=== PATIENT | male | born 1970 | race American Indian/Alaskan Native ===

== ENCOUNTER 2016-10-18 03:03 | Emergency (ER) | payer SELFPAY ==
[2016-10-18 03:13] VITALS: BP 149/92
[2016-10-18] MEDS ORDERED: MOTRIN PO ONE (04:59)
[2016-10-18] MEDS ORDERED: CLEOCIN PO ONE (05:00)
--- NOTE | 2016-10-18 05:03 | Emergency Department Report ---
ED ENT HPI - General Chief complaint: Dental/Oral Stated complaint: TOOTHACHE Time Seen by Provider: 10/18/16 04:58 Source: patient Mode of arrival: Ambulatory Limitations: No Limitations - History of Present Illness Initial comments: 46-year-old male comes in for complaint of right upper tooth and jaw swelling 2 days. Patient does admit that he has some bad teeth in his mouth. He admits to nausea vomiting fever and chills. MD complaint: tooth pain, difficulty swallowing - Related Data Previous Rx's Medication Instructions Recorded Last Taken Type Clindamycin [Clindamycin CAP] 300 mg PO Q8H #30 cap 10/18/16 Unknown Rx Ibuprofen [Motrin 800 MG tab] 800 mg PO ONCE #30 tablet 10/18/16 Unknown Rx Allergies Allergy/AdvReac Type Severity Reaction Status Date / Time seafood Allergy Intermediate Hives Uncoded 10/18/16 03:15 ED Dental HPI - General Chief complaint: Dental/Oral Stated complaint: TOOTHACHE Time Seen by Provider: 10/18/16 04:58 Source: patient Mode of arrival: Ambulatory Limitations: No Limitations - Related Data Previous Rx's Medication Instructions Recorded Last Taken Type Clindamycin [Clindamycin CAP] 300 mg PO Q8H #30 cap 10/18/16 Unknown Rx Ibuprofen [Motrin 800 MG tab] 800 mg PO ONCE #30 tablet 10/18/16 Unknown Rx Allergies Allergy/AdvReac Type Severity Reaction Status Date / Time seafood Allergy Intermediate Hives Uncoded 10/18/16 03:15 ED Review of Systems ROS: Stated complaint: TOOTHACHE Other details as noted in HPI Constitutional: chills, fever ENT: dental pain Respiratory: denies: cough, shortness of breath Cardiovascular: denies: chest pain ED Past Medical Hx - Past Medical History Previous Medical History?: No - Surgical History Past Surgical History?: No - Social History Smoking Status: Current Every Day Smoker Substance Use Type: None - Medications Home Medications: Home Medications Medication Instructions Recorded Confirmed Last Taken Type Clindamycin [Clindamycin CAP] 300 mg PO Q8H #30 cap 10/18/16 Unknown Rx Ibuprofen [Motrin 800 MG tab] 800 mg PO ONCE #30 tablet 10/18/16 Unknown Rx ED Physical Exam - General Limitations: No Limitations General appearance: alert, in no apparent distress - Head Head exam: Present: atraumatic, normocephalic - ENT ENT exam: Present: mucous membranes moist - Expanded ENT Exam Expanded Teeth exam: Present: dental caries (28), fractured tooth # (28), gingival enlargement Throat exam: Positive: normal inspection - Neck Neck exam: Present: tenderness - Respiratory Respiratory exam: Present: normal lung sounds bilaterally. Absent: respiratory distress, wheezes, rales, rhonchi - Cardiovascular Cardiovascular Exam: Present: regular rate, normal rhythm, normal heart sounds ED Course Vital Signs 10/18/16 03:05 Temperature 98.9 F Pulse Rate 73 Respiratory 20 Rate Blood Pressure 149/92 O2 Sat by Pulse 98 Oximetry ED Medical Decision Making - Medical Decision Making And evaluated by this provider fast track will order ibuprofen 800 mg 1 tablet by mouth now as well as clindamycin 600 mg 1 tablet now we'll discharge patient on ibuprofen and clindamycin for follow-up to the dentist verbalized understanding Critical care attestation.: If time is entered above; I have spent that time in minutes in the direct care of this critically ill patient, excluding procedure time. ED Disposition Clinical Impression: Abscessed tooth Disposition: DISCHARGED TO HOME OR SELFCARE Is pt being admited?: No Does the pt Need Aspirin: No Condition: Stable Instructions: Dental Abscess (ED), Toothache (ED) Additional Instructions: Complete all antibiotic as prescribed it is very important to follow-up with dentist. Prescriptions: Clindamycin [Clindamycin CAP] 300 mg PO Q8H #30 cap Ibuprofen [Motrin 800 MG tab] 800 mg PO ONCE #30 tablet Referrals: PRIMARY CARE, [Primary Care Provider] - 3-5 Days Forms: Work/School Release Form(ED)
== END 2016-10-18 05:47 | disposition home or self-care (01) ==
LOC: ED 03:03
DX: K04.7 Periapical abscess without sinus (principal); F17.200 Nicotine dependence, unspecified, uncomplicated; Z91.013 Allergy to seafood
CPT/HCPCS: 99282

== ENCOUNTER 2017-08-18 06:49 | Emergency (ER) | payer MEDICAID, OTHER ==
[2017-08-18 08:19] LABS: Basophils % (Auto) 0.6 % (0.0-1.8); Eosinophils % (Auto) 0.2 % (0.0-4.3); Hematocrit 40.5 % (35.5-45.6); Hemoglobin 13.7 gm/dl (11.8-15.2); Mean Corpuscular HGB Conc 34 % (32-34); Mean Corpuscular Hemoglobin 29 pg (28-32); Mean Corpuscular Volume 86 fl (84-94); Platelet Count 159 K/mm3 (140-440); Red Blood Count 4.73 M/mm3 (3.65-5.03); Red Cell Distribution Width 14.3 % (13.2-15.2); White Blood Count 7.3 K/mm3 (4.5-11.0)
[2017-08-18 08:41] LABS: Anion Gap 15 mmol/L; BUN/Creatinine Ratio 12; Blood Urea Nitrogen 7 mg/dL (9-20); Calcium 8.7 mg/dL (8.4-10.2); Carbon Dioxide 26 mmol/L (22-30); Chloride 102.1 mmol/L (98-107); Glucose 102 mg/dL (75-100); Potassium 4.5 mmol/L (3.6-5.0); Sodium 139 mmol/L (137-145)
--- NOTE | 2017-08-18 08:48 | XRay Report ---
LEFT HAND, 3 views: History: Pain and swelling. The bony architecture is intact. Bony alignment is normal. No soft tissue abnormalities are seen. The joint spaces appear preserved. IMPRESSION: Normal left hand.
--- NOTE | 2017-08-18 08:48 | XRay Report ---
LEFT ELBOW, 2 views: History: Pain and swelling. The bony architecture is intact without evidence of fracture or dislocation. No significant soft tissue abnormality is seen. IMPRESSION: Unremarkable left elbow.
--- NOTE | 2017-08-18 08:49 | XRay Report ---
LEFT SHOULDER: History: Pain and swelling. Minimal osteoarthritic changes are identified. Subtle calcifications are identified in the inferior joint space which may represent calcified foreign bodies. There is no evidence for fracture, dislocation, ligamentous injury or bone lesion. IMPRESSION: Degenerative findings as described.
--- NOTE | 2017-08-18 10:31 | Emergency Department Report ---
ED Chest Pain HPI - General Chief Complaint: Chest Pain Stated Complaint: Chest pain, left arm pain Time Seen by Provider: 08/18/17 10:30 Source: patient Mode of arrival: Ambulatory Limitations: No Limitations - History of Present Illness Initial Comments: Patient is actually not here for chest pain. His principal area of discomfort is his shoulder and the area around the shoulder. In fact he had x-rays of the shoulder forearm and hand ordered prior to my arrival. He did tell me he had some soreness in the area of his chest left. Axillary region. Essentially he did a full day of shoveling and the following day his left shoulder he got sore. He denied any associated symptoms. He had no exertional chest pain. He completed that shoveling without difficulty in breathing. He does not have chest pain at the time of my encounter. The pain in his shoulder clearly is augmented on movement and is somewhat guarded with his range of motion. -: hour(s), days(s) Onset: other Pain Location: other Pain Radiation: none Severity: moderate Quality: aching Consistency: intermittent Improves With: rest Worsens With: movement Context: other re: denies: nausea, vomting, diaphoresis, dyspnea, sense of impending doom Other Symptoms: denies: cough, fever, syncope Treatments Prior to Arrival: none Aspirin use within the Past 7 Days: (0) No - Related Data Previous Rx's Medication Instructions Recorded Last Taken Type Clindamycin [Clindamycin CAP] 300 mg PO Q8H #30 cap 10/18/16 Unknown Rx Ibuprofen [Motrin 800 MG tab] 800 mg PO ONCE #30 tablet 10/18/16 Unknown Rx HYDROcodone/ACETAMINOPHEN [[place]gs 1 each PO Q6H PRN #16 tablet 08/18/17 Unknown Rx 7.5-325 Tablet] Naproxen [Naprosyn] 500 mg PO BID #14 tablet 08/18/17 Unknown Rx Allergies Allergy/AdvReac Type Severity Reaction Status Date / Time seafood Allergy Intermediate Hives Uncoded 10/18/16 03:15 Heart Score - HEART Score History: Slightly suspicious (not suspicious at all) EKG: Normal Age: 45-65 Risk factors: 1-2 risk factors Troponin: < normal limit HEART Score: 2 - Critical Actions Critical Actions: 0-3 pts:0.9-1.7%risk of adverse cardiac event.Candidate for discharge ED Review of Systems ROS: Stated complaint: Chest pain, left arm pain Other details as noted in HPI Constitutional: denies: chills, fever Eyes: denies: eye pain, eye discharge, vision change ENT: denies: ear pain, throat pain Respiratory: denies: cough, shortness of breath, wheezing Cardiovascular: as per HPI. denies: palpitations Endocrine: no symptoms reported Gastrointestinal: denies: abdominal pain, nausea, diarrhea Genitourinary: denies: urgency, dysuria Musculoskeletal: as per HPI, arthralgia. denies: back pain, joint swelling Skin: denies: rash, lesions Neurological: denies: headache, weakness, paresthesias Psychiatric: denies: anxiety, depression Hematological/Lymphatic: denies: easy bleeding, easy bruising ED Past Medical Hx - Past Medical History Previous Medical History?: No - Surgical History Past Surgical History?: No - Social History Smoking Status: Current Every Day Smoker Substance Use Type: None - Medications Home Medications: Home Medications Medication Instructions Recorded Confirmed Last Taken Type Clindamycin [Clindamycin CAP] 300 mg PO Q8H #30 cap 10/18/16 Unknown Rx Ibuprofen [Motrin 800 MG tab] 800 mg PO ONCE #30 tablet 10/18/16 Unknown Rx HYDROcodone/ACETAMINOPHEN [[place] 1 each PO Q6H PRN #16 tablet 08/18/17 Unknown Rx 7.5-325 Tablet] Naproxen [Naprosyn] 500 mg PO BID #14 tablet 08/18/17 Unknown Rx ED Physical Exam - General Limitations: No Limitations General appearance: alert, in no apparent distress - Head Head exam: Present: atraumatic, normocephalic - Eye Eye exam: Present: normal appearance. Absent: scleral icterus - ENT ENT exam: Present: mucous membranes moist - Neck Neck exam: Present: normal inspection - Respiratory Respiratory exam: Present: normal lung sounds bilaterally. Absent: respiratory distress - Cardiovascular Cardiovascular Exam: Present: regular rate, normal rhythm. Absent: systolic murmur, diastolic murmur, rubs, gallop - GI/Abdominal GI/Abdominal exam: Present: soft, normal bowel sounds - Rectal Rectal exam: Present: deferred - Extremities Exam Extremities exam: Present: other (patient's range of motion is somewhat guarded and certainly tender. He has some soreness to palpation of his periaxillary area. He has full range of motion of his left arm distally. Neurovascular exam is intact. Exam is consistent with bursitis.) - Back Exam Back exam: Present: normal inspection - Neurological Exam Neurological exam: Present: alert, oriented X3 - Psychiatric Psychiatric exam: Present: normal affect, normal mood - Skin Skin exam: Present: warm, dry, intact, normal color. Absent: rash ED Course Vital Signs 08/18/17 08/18/17 07:45 10:56 Temperature 98.6 F Pulse Rate 68 Respiratory 20 18 Rate Blood Pressure 132/90 O2 Sat by Pulse 100 Oximetry KOREY score - Korey Score Age > 65: (0) No Aspirin use within the Past 7 Days: (0) No 3 or more CAD Risk Factors: (0) No 2 or more Angina events in past 24 hrs: (0) No Known CAD with more than 50% Stenosis: (0) No Elevated Cardiac Markers: (0) No ST Deviation Greater than 0.5mm: (0) No KOREY Score: 0 ED Medical Decision Making - Lab Data Result diagrams: 08/18/17 08:02 08/18/17 08:00 Laboratory Results - last 24 hr 08/18/17 08/18/17 08:00 08:02 WBC 7.3 RBC 4.73 Hgb 13.7 Hct 40.5 MCV 86 MCH 29 MCHC 34 RDW 14.3 Plt Count 159 Lymph % (Auto) 16.8 [place] % (Auto) 12.9 H Eos % (Auto) 0.2 Baso % (Auto) 0.6 Lymph # 1.2 [place] # 0.9 H Eos # 0.0 Baso # 0.0 Seg Neutrophils % 69.5 Seg Neutrophils # 5.1 Sodium 139 Potassium 4.5 Chloride 102.1 Carbon Dioxide 26 Anion Gap 15 BUN 7 L Creatinine 0.6 L Estimated GFR > 60 BUN/Creatinine Ratio 12 Glucose 102 H Calcium 8.7 Troponin T < 0.010 - EKG Data -: EKG Interpreted by Me EKG shows normal: sinus rhythm, axis, intervals, QRS complexes, ST-T waves Rate: normal - EKG Data RSR in V2 evidence of J-point elevation which is diffuse probably consistent with early repolarization 08/18/17 10:31 - Radiology Data Radiology results: report reviewed (reports is consistent with calcific tendinitis no fractures) Critical care attestation.: If time is entered above; I have spent that time in minutes in the direct care of this critically ill patient, excluding procedure time. ED Disposition Clinical Impression: Bursitis of shoulder, left, Tendinitis of left shoulder Disposition: TO HOME OR SELFCARE Is pt being admited?: No Does the pt Need Aspirin: No Condition: Stable Instructions: Calcific Tendinitis (ED), Tendinitis (ED) Additional Instructions: See orthopedic doctor for follow-up. Rx for pain. Return any acute change or problems. Prescriptions: HYDROcodone/ACETAMINOPHEN [Peggs 7.5-325 Tablet] 1 each PO Q6H PRN #16 tablet PRN Reason: Pain Naproxen [Naprosyn] 500 mg PO BID #14 tablet Referrals: PRIMARY CAREMD [Primary Care Provider] - 3-[address] [facility] [Provider Group] - 3-5 Days SILVER SARABIA MD [Staff Physician] - 2-3 Days Time of Disposition: 11:25
[2017-08-18] MEDS ORDERED: TORADOL IM ONE (10:43)
[2017-08-18] MEDS ORDERED: DECADRON IM ONE (10:43)
[2017-08-18 11:53] VITALS: BP 130/87
== END 2017-08-18 12:00 | disposition home or self-care (01) ==
LOC: ED 06:49
DX: M75.52 Bursitis of left shoulder (principal); F17.200 Nicotine dependence, unspecified, uncomplicated; Z91.013 Allergy to seafood
CPT/HCPCS: 36415; 73030; 73070; 73120; 80048; 84484; 85025; 93005; 93010; 96372; 99284; J1100; J1885